=== PATIENT | male | born 1940 | race Caucasian/White ===

== ENCOUNTER 2020-10-06 04:19 | Outpatient (CLI) | payer MEDICARE, SELFPAY ==
[2020-10-06 10:41] LABS: Abs Immature Grans 0.01 10^3/uL (0.0-0.06); Absolute Basophil Count 0.01 10^3/uL (0.0-0.2); Absolute Lymphocyte Count 0.94 10^3/uL (1.2-3.4); Absolute Monocyte Count 0.36 10^3/uL (0.1-0.8); Absolute Neutrophil Count 3.83 10^3/uL (1.2-6.7); Basophils % 0.2; Eosinophils % 1.9; HCT 29.6 % (40.0-50.0); HGB 9.2 g/dL (13.5-17.5); Immature Grans % 0.2; Lymphocytes % 17.9; MCH 32.3 pg (27.0-33.0); MCHC 31.1 % (32.0-36.0); MCV 103.9 fL (80-95); MPV 11.2 fL (8.0-11.0); Monocytes % 6.9; Neutrophils % 72.9; Nucleated RBC 0 %; Platelet Count 202 10^3/uL (130-400); RBC 2.85 10^6/uL (4.36-5.78); RDW 16.3 % (11.8-14.1); RDW-SD 62.7 fL; WBC 5.25 10^3/uL (4.4-10.8)
[2020-10-06 11:11] LABS: Iron 213 ug/dL (65-175)
== END 2020-10-06 04:39 ==
PROVIDERS: Visit Provider Internal Medicine
DX: D64.9 Anemia, unspecified (principal)
CPT/HCPCS: 36415; 83540; 85025

== ENCOUNTER 2020-10-22 04:26 | Outpatient (CLI) | payer MEDICARE, SELFPAY ==
[2020-10-22 10:29] LABS: Abs Immature Grans 0.01 10^3/uL (0.0-0.06); Absolute Basophil Count 0.02 10^3/uL (0.0-0.2); Absolute Eosinophil Count 0.09 10^3/uL (0.0-0.7); Absolute Lymphocyte Count 1.14 10^3/uL (1.2-3.4); Absolute Monocyte Count 0.42 10^3/uL (0.1-0.8); Absolute Neutrophil Count 3.78 10^3/uL (1.2-6.7); Basophils % 0.4; Eosinophils % 1.6; HCT 37.6 % (40.0-50.0); HGB 11.7 g/dL (13.5-17.5); Immature Grans % 0.2; Lymphocytes % 20.9; MCHC 31.1 % (32.0-36.0); MCV 99.5 fL (80-95); MPV 11.3 fL (8.0-11.0); Monocytes % 7.7; Neutrophils % 69.2; Nucleated RBC 0 %; Platelet Count 239 10^3/uL (130-400); RBC 3.78 10^6/uL (4.36-5.78); RDW 13.4 % (11.8-14.1); RDW-SD 49.6 fL; WBC 5.46 10^3/uL (4.4-10.8)
[2020-10-22 11:18] LABS: Iron 55 ug/dL (65-175)
== END 2020-10-22 04:46 ==
PROVIDERS: Visit Provider Internal Medicine
DX: D64.9 Anemia, unspecified (principal)
CPT/HCPCS: 36415; 83540; 85025

== ENCOUNTER 2020-11-10 03:21 | Outpatient (CLI) | payer MEDICARE, SELFPAY ==
[2020-11-10 09:36] LABS: Abs Immature Grans 0.01 10^3/uL (0.0-0.06); Absolute Basophil Count 0.02 10^3/uL (0.0-0.2); Absolute Eosinophil Count 0.09 10^3/uL (0.0-0.7); Absolute Lymphocyte Count 1.14 10^3/uL (1.2-3.4); Absolute Neutrophil Count 3.29 10^3/uL (1.2-6.7); Basophils % 0.4; Eosinophils % 1.8; HCT 39.6 % (40.0-50.0); HGB 12.6 g/dL (13.5-17.5); Immature Grans % 0.2; Lymphocytes % 22.6; MCH 30.4 pg (27.0-33.0); MCHC 31.8 % (32.0-36.0); MCV 95.7 fL (80-95); MPV 11.4 fL (8.0-11.0); Monocytes % 9.9; Neutrophils % 65.1; Nucleated RBC 0 %; Platelet Count 195 10^3/uL (130-400); RBC 4.14 10^6/uL (4.36-5.78); RDW-SD 46.4 fL; WBC 5.05 10^3/uL (4.4-10.8)
[2020-11-10 10:47] LABS: ALT 30 U/L (16-63); CREATININE 0.9 mg/dL (0.70-1.30); Ferritin 134 ng/mL (26-388)
== END 2020-11-10 03:22 | disposition home or self-care (01) ==
LOC: LBO 03:21
PROVIDERS: Visit Provider Internal Medicine
DX: D64.9 Anemia, unspecified (principal); I10 Essential (primary) hypertension; E78.1 Pure hyperglyceridemia
CPT/HCPCS: 36415; 82565; 82728; 84460; 85025

== ENCOUNTER 2021-08-11 17:01 | Emergency (ER) | payer MEDICARE, OTHER, SELFPAY ==
[2021-08-11 17:07] VITALS: PULSE 83; RESP 16; TEMP 36.6; O2SAT 97
--- NOTE | 2021-08-11 17:33 | W.ED.GENAD ---
Discharge Plan Disposition Patient Disposition: HOME Condition: Stable Discharge Details Clinical Impression: Hordeolum externum left eye, unspecified eyelid Primary Care Provider: None,None ED Provider: Jeronimo Araujo Home Meds and New Rx's Prescriptions: New clindamycin HCl 150 mg capsule 450 mg PO TID 7 Days Qty: 63 RF: 0 ciprofloxacin HCl 0.3 % drops See Rx Instructions .ROUTE .COMPLEX Qty: 10 RF: 0 Continued montelukast 10 MG tablet 10 mg PO .EVENINGS RF: 0 epinephrine [EpiPen 2-Johnny] 0.3 MG/0.3 ML auto-injector 0.3 mg IM PRN RF: 0 Flovent HFA 120 PUFF HFA aerosol inhaler 2 puff Inhalation BID RF: 0 All Day Allergy (cetirizine) 10 MG capsule 10 mg PO .DAILY PRN RF: 0 albuterol sulfate 8.5 GM HFA aerosol inhaler 2 puff Inhalation Q4H PRN Qty: 1 RF: 0 codeine-guaifenesin 5 ML liquid 5 ml PO Q6H PRN Qty: 120 RF: 0 pravastatin 40 mg Tablet 40 mg PO DAILY RF: 0 amlodipine 5 mg Tablet 5 mg PO DAILY RF: 0 losartan 25 mg Tablet 25 mg PO DAILY RF: 0 Discharge Instructions Instructions: Stye (ED) Additional Instructions: follow up with your traffic control specialist as scheduled when you get to [place] if you have worsening pain, decrease in vision or fevers return to the emergency department Medical Decision Making 81 yo male comes in with left lower eyelid redness for a week. He had the same issue on the right eye lid 2 weeks ago and resolved with warm compresses but this left eyelid stye has been persistent. Denies trauma, fevers, chills, vision changes. He has a 3mm area of redness and swelling on the eyelid border of the left lower eyelid, mild erythema of the eye, perrl, no eye pain or deep eye pain, no periorbital swelling, no pain with eye movement and eomi. Suspect stye and will tx with clindamycin and also topical cipro. He is going to [place] for the winter and already has an appointment with his traffic control specialist next week. He is stable for d/c, return precautions given Differential Diagnosis Differential Diagnosis: stye, conjunctivitis HPI General Mode of arrival: ambulatory. Date/Time Provider Initiated Documentation: 08/11/21 17:17. Limitations to Documentation: no limitations. Information obtained by: patient. History of Present Illness 81 year old M presents to the emergency department with the chief complaint of left lower eyelid stye, described as moderate, and it has been constant. No relieving factors improve symptom(s), No exacerbating factors reported . Patient notes no other symptoms.. Related Data Home Medications Medication Instructions Recorded Confirmed All Day Allergy (cetirizine) 10 mg PO .DAILY PRN 02/11/14 08/11/21 Flovent HFA 2 puff INHALATION BID 02/11/14 08/11/21 albuterol sulfate 2 puff INHALATION Q4H PRN #1 02/11/14 08/11/21 hfa.aer.ad codeine-guaifenesin 5 ml PO Q6H PRN #120 liquid 02/11/14 epinephrine [EpiPen 2-Johnny] 0.3 mg IM PRN 02/11/14 08/11/21 montelukast 10 mg PO .EVENINGS 02/11/14 08/11/21 amlodipine 5 mg PO DAILY 08/11/21 08/11/21 ciprofloxacin HCl See Rx Instructions .ROUTE 08/11/21 .COMPLEX #10 ml clindamycin HCl 450 mg PO TID 7 Days #63 cap 08/11/21 losartan 25 mg PO DAILY 08/11/21 08/11/21 pravastatin 40 mg PO DAILY 08/11/21 08/11/21 Previous Rx's Medication Instructions Recorded albuterol sulfate 2 puff INHALATION Q4H PRN #1 02/11/14 hfa.aer.ad codeine-guaifenesin 5 ml PO Q6H PRN #120 liquid 02/11/14 ciprofloxacin HCl See Rx Instructions .ROUTE 08/11/21 .COMPLEX #10 ml clindamycin HCl 450 mg PO TID 7 Days #63 cap 08/11/21 Allergies Allergy/AdvReac Type Severity Reaction Status Date / Time Cephalosporins Allergy Mild Skin Rash Unverified 08/11/21 17:14 Penicillins Allergy Mild Anaphylaxsi Unverified 08/11/21 17:14 s Sulfa (Sulfonamide Allergy unknown Unverified 08/11/21 17:14 Antibiotics) was told as child not to take it fire ants Allergy Intermediate stomach Uncoded 08/11/21 17:14 cramps General Stated Complaint: EyeProblem BEHZAD: 3 Review of Systems All systems reviewed & are unremarkable except as noted in HPI and below Constitutional Constitutional: Denies chills, Denies fever(s) and Denies weakness Cardiovascular Cardiovascular: Denies chest pain and Denies dyspnea Respiratory Respiratory: Denies cough and Denies dyspnea Gastrointestinal Gastrointestinal: Denies abdominal pain, Denies nausea and Denies vomiting Musculoskeletal Musculoskeletal: Denies joint swelling Neurologic Neurologic: Denies weakness [facility] Social History Smoking/Tobacco Use Status: Former Tobacco Use Smoking risk assessment performed?: Yes Drug use: Never Substance use type: does not use Exam Const General: no acute distress Orientation: alert HENMT Head: normal to inspection Ears: external ears normal General nose exam: external nose normal Mouth: moist mucous membranes Eyes General: appearance normal, both eyes and all related structures Alignment and Position: alignment normal Neck Neck: normal visual inspection Resp Effort & Inspection: normal respiratory effort and able to speak in complete sentences Cardio Rate: regular rate Skin General skin exam: no rashes or lesions noted Neuro General: patient alert and patient oriented x3 Extrem General: normal to inspection Psych Mental Status: mental status grossly normal Course Vital Signs Vital signs: Vital Signs Temperature 36.6 C 08/11/21 17:07 Pulse 83 08/11/21 17:07 Respiratory Rate 16 08/11/21 17:07 Pulse Oximetry 97 08/11/21 17:07 Temperature 36.6 C 08/11/21 17:07 Pulse 83 08/11/21 17:07 Respiratory Rate 16 08/11/21 17:07 Respiratory Effort Non-Labored 08/11/21 17:07 Pulse Oximetry 97 08/11/21 17:07 Oxygen Delivery Method Room Air 08/11/21 17:07 Oxygen Flow Rate 0 08/11/21 17:07 Pain Level 0 08/11/21 17:07 PAWSS Have you Been Recently Intoxicated or Drunk Within the Last 30 days?: No Have you Ever Experienced Previous Episodes of Alcohol Withdrawal?: No Have you ever Experienced Withdrawal Seizures?: No Have you ever Experienced Delirium Tremens(DT)s?: No Have you ever undergone Alcohol Rehabilitation Treatment (i.e, inpt ot outpatient treatment programs)?: No Have you ever Experienced Blackouts?: No Have you ever Combined Alcohol with other Downers within the last 90 days?: No Have you ever Combined Alcohol with any other Substance of Abuse during the last 90 days?: No Positive Blood Alcohol level on Presentation? [PCS.BAL]: No Evidence of Increased Autonomic Activity (i.e. HR>120, tremor, sweating, agitation, nausea)?: No Result: 0
== END 2021-08-11 17:47 | disposition home or self-care (01) ==
PROVIDERS: Emergency Provider Emergency Medicine
DX: H00.015 Hordeolum externum left lower eyelid (principal)
CPT/HCPCS: 99283